=== PATIENT | male | born 1945 | race Caucasian/White ===

== ENCOUNTER 2020-02-11 02:20 | Emergency (ER) | payer BC, OTHER ==
[~2020-02-11] VITALS: Ht 170.2 cm; Wt 70.8 kg
--- NOTE | 2020-02-11 02:30 | NUR ---
biba to bed 11
[2020-02-11] MEDS ORDERED: TRANEXAMIC ACID 1,000 MG/10 ML VIAL ONE ×2 (02:33→05:52)
[2020-02-11 02:35] VITALS: BP 175/89
--- NOTE | 2020-02-11 02:35 | NUR ---
74 year old male presents to ED via ambulance for c/o actively bleeding Rt upper premolar and molar tooth. pt states has had tooth removal on the site less than a week ago. states he woke up tonight with blood clot in his mouth and continuous blood flow. ERMD made aware of pt status. BP elevated. denies any other s/sx. awaiting MSE. pmhx: denies nka
--- NOTE | 2020-02-11 02:55 | NUR ---
Dr. Browne placed dental block.
[2020-02-11 02:58] LABS: CHLORIDE 104 mmol/L (98-107); CREATININE 2.1 mg/dL (0.6-1.3); GLUCOSE 242 mg/dL (74-106); SODIUM SERUM 139 mmol/L (136-145); UREA NITROGEN, BLOOD 60 mg/dL (7-18)
[2020-02-11 03:12] LABS: PROTHROMBIN TIME 11.4 secs (10.8-13.4)
[2020-02-11 03:18] LABS: BASOPHILS % (AUTO) 0.4 % (0.0-2.0); EOSINOPHILS # (AUTO) 0.2 K/uL (0-0.4); EOSINOPHILS % (AUTO) 2.9 % (0.0-4.0); HEMATOCRIT 31.3 % (36-52); HEMOGLOBIN 10.2 g/dL (12.0-18.0); LYMPHOCYTES # (AUTO) 0.9 K/uL (2.0-11.5); LYMPHOCYTES % (AUTO) 10.9 % (20.5-51.1); MEAN CORPUSCULAR HEMOGLOBIN 30 pg (27-31); MEAN CORPUSCULAR HGB CONC 33 g/dL (33-37); MEAN CORPUSCULAR VOLUME 93.1 fL (80-94); MONOCYTES # (AUTO) 0.5 K/uL (0.8-1.0); MONOCYTES % (AUTO) 6.4 % (1.7-9.3); NEUTROPHILS # (AUTO) 6.6 K/uL (1.8-7.7); NEUTROPHILS % (AUTO) 79.4 % (42.2-75.2); PLATELET COUNT (AUTO) 207 K/uL (140-450); RED BLOOD CELL COUNT(AUTO) 3.36 MIL/uL (4.20-6.10); RED CELL DISTRIBUTION WIDTH 15.3 % (11.6-13.7); WHITE BLOOD COUNT (AUTO) 8.4 K/uL (4.8-10.8)
[2020-02-11] MEDS ORDERED: TRANEXAMIC ACID 1,000 MG/10 ML VIAL MC ONE ×2 (04:05→06:25)
[2020-02-11] MEDS ORDERED: LIDOCAINE/EPI 1% 1:100000 20 ML VIAL INJ ONE ×2 (05:52→06:25)
== END 2020-02-11 07:06 | disposition home or self-care (01) ==
LOC: MED 02:20
DX: K91.841 Postprocedural hemorrhage of a digestive system organ or structure following other procedure (principal); Y83.9 Surgical procedure, unspecified as the cause of abnormal reaction of the patient, or of later complication, without mention of misadventure at the time of the procedure
CPT/HCPCS: 36415; 80048; 85025; 85610; 85730; 99283; J2001; J3490